=== PATIENT | female | born 1995 | race Two or more races ===

== ENCOUNTER 2020-06-19 00:21 | Outpatient (CLI) | payer OTHER ==
[~2020-06-19 00:21] MED LIST: PRENATAL 19 TA1 EACH
[2020-06-19] MEDS ORDERED: PRENATAL TABLE1 EAC1 PO (00:34)
[2020-06-19] MEDS ORDERED: FOLIC ACID20 MG PO (00:35)
[2020-06-19] MEDS ORDERED: OSTERA TABLET1 EACH PO (00:35)
== END 2020-06-19 11:40 | disposition home or self-care (01) ==
LOC: OBS/DEL 00:21
PROVIDERS: ATTEND Obstetrics & Gynecology
DX: O47.1 False labor at or after 37 completed weeks of gestation (principal); Z20.822 Contact with and (suspected) exposure to COVID-19

== ENCOUNTER 2025-01-28 20:37 | Emergency (ER) | payer OTHER ==
[~2025-01-28] VITALS: Ht 160 cm; Wt 52.2 kg
[~2025-01-28 20:37] MED LIST changes: +FOLIC ACID20 MG PO; +OSTERA TABLET1 EACH PO; +PRENATAL TABLE1 EAC1 PO
[2025-01-28] MEDS ORDERED: BUTALB/ACETAMINOPHEN/CAFFEINE 1 TAB TABLET PO ONE ×2 (22:15→22:21)
[2025-01-28 23:12] LABS: BASO % 0.4 % (0.1-1.2); EOS # 0.20 (0.04-0.54); EOS % 3.8 % (0.7-7.0); LYMPH # 2.10 (1.18-3.74); LYMPH % 40.2 % (19.3-53.1); MEAN PLATELET VOLUME 10.30 fl (9.4-12.4); MONO # 0.54 (0.24-0.82); MONO % 10.3 % (4.7-12.5); NEUT # 2.36 (1.56-6.13); NEUT % 45.3 % (34.0-71.1); RED CELL DISTRIBUTION WIDTH 11.6 % (11.6-14.4)
[2025-01-28 23:29] LABS: COVID-19 AG NEGATIVE (NEGATIVE)
[2025-01-29] MEDS ORDERED: PEPCID AC20 MG PO (00:27)
[2025-01-29] MEDS ORDERED: IBU600 MG PO (00:27)
[2025-01-29] MEDS ORDERED: ORPHENADRINE CITRATE 30 MG/ML AMPUL IM ONE (00:30)
[2025-01-29] MEDS ORDERED: ORPHENADRINE CITRATE 30 MG/ML AMPUL ONE (00:55)
[2025-01-29 01:15] VITALS: BP 115/86; O2SAT 98
== END 2025-01-29 01:16 | disposition home or self-care (01) ==
LOC: ER 20:38
PROVIDERS: General Practice
DX: M54.89 Other dorsalgia (principal); R20.0 Anesthesia of skin; R51.9 Headache, unspecified; Z88.8 Allergy status to other drugs, medicaments and biological substances; Z20.822 Contact with and (suspected) exposure to COVID-19